=== PATIENT | male | born 1975 | race Caucasian/White ===

== ENCOUNTER 2022-11-28 05:40 | Outpatient (CLI) | payer BC, OTHER ==
[~2022-11-28] VITALS: Ht 172.7 cm; Wt 102.1 kg
[2022-11-29] MEDS ORDERED: SIMV20TA26 PO (11:29)
[2022-11-29] MEDS ORDERED: OMEP10CA5 PO (11:29)
[2022-11-29] MEDS ORDERED: CETI10TA17 PO (11:29)
== END 2022-11-29 11:35 | disposition home or self-care (01) ==
LOC: PREOP 05:40
PROVIDERS: ATTEND Surgery
DX: Z01.818 Encounter for other preprocedural examination (principal)

== ENCOUNTER 2022-12-11 07:47 | Day surgery (SDC) | payer BC, OTHER ==
[~2022-12-11] VITALS: Ht 172.7 cm; Wt 102.1 kg
[2022-12-11] VITALS (7 sets, daily range): BP systolic 100–128; BP diastolic 62–84
[~2022-12-11 07:47] MED LIST: CETI10TA17 PO; OMEP10CA5 PO; SIMV20TA26 PO
[2022-12-11] MEDS ORDERED: LACTATED RINGERS 1,000 ML IV STA (07:52)
[2022-12-11] MEDS ORDERED: HURRICAINE EXT TUBE (BENZOCAINE) XX PRN (08:00)
[2022-12-11] MEDS ORDERED: PROPOFOL INJECTION 50 ML IV ONE (09:10)
[2022-12-11] MEDS ORDERED: MIDAZOLAM 2 MG/2 ML (VERSED) VIAL ONE (09:11)
--- NOTE | 2022-12-11 09:43 | Progress Note-Post Operative ---
Post-Operative Progess Note Surgeon (s)/Mobile Phone Salesperson (s) Surgeon BERKLEY GARCÍA DO Mobile Phone Salesperson: na Pre-Operative Diagnosis GERD, Screening Colonoscopy Post-Operative Diagnosis Hiatal Hernia, Transverse Colon Polyp Procedure & Operative Findings Date of Procedure 12/11/22 Procedure Performed/Findings EGD with biopsies, Colonoscopy with hot biopsy polypectomy x1 Anesthesia Type per SCORER HELPER Estimated Blood Loss Estimated blood loss (mL): none Specimens/Packing Specimens Removed antrum, GE Junction, Transverse Colon x1 BERKLEY GARCÍA DO December 11, 2022 09:43
--- NOTE | 2022-12-11 09:45 | Discharge Inst-Simple/Standard ---
Discharge Inst-Standard Patient Instructions/Follow Up Plan of Care/Instructions/FU: Follow up with [facility] in two weeks Activity as Tolerated: Yes Discharge Diet: Regular Diet BERKLEY GARCÍA DO December 11, 2022 09:45
--- NOTE | 2022-12-11 15:26 | OPERATIVE REPORT ---
DATE OF SERVICE: 12/11/2022 PREOPERATIVE DIAGNOSES: Gastroesophageal reflux disease, screening colonoscopy. POSTOPERATIVE DIAGNOSES: Hiatal hernia and transverse colon polyp. PROCEDURES: EGD with biopsies, colonoscopy with hot biopsy polypectomy x1. SURGEON: Berkley Farooq DO ANESTHESIA: Per [employer] OPERATOR. ESTIMATED BLOOD LOSS: None. COMPLICATIONS: None. SPECIMENS: Antrum GE junction and transverse colon polyp. INDICATIONS: The patient is a 47-year-old male with GERD symptoms and needing screening colonoscopy. He understands risks and benefits of procedures and wished to proceed. Consent was signed in chart. DESCRIPTION OF PROCEDURE: The patient was taken to endoscopy suite, placed in left lateral recumbent position. Timeout was performed. Scope was inserted in the mouth, down the esophagus, stomach and the duodenum without difficulty. No polyps, masses or ulcerations within the duodenum. Scope was retracted back into Stomach was further insufflated. No polyps, masses or ulcerations. Biopsy of the antrum was obtained. Scope was retroflexed noting a hiatal hernia, minimal to moderate. Scope was then returned to its normal position, slowly withdrawn until distal esophagus. No polyps, masses or ulcerations. Biopsy of GE junction was obtained. Scope was slowly retracted back until completely removed. The patient tolerated the procedure well without complications. Digital rectal exam was performed. No palpable polyps, masses or ulcerations. Scope was inserted in the rectum, advanced all the way to the cecum with minimal difficulty. Prep was adequate. Scope was slowly retracted back. No polyps, masses or ulcerations in the cecum. In the ascending colon, transverse colon, small polyp was present, which hot biopsy polypectomy was performed. Scope was then continuously retracted back. No polyps, masses or ulcerations in the remainder of the transverse, descending and sigmoid colon. Once in the rectum, scope was retroflexed noting no other pathology. Scope was returned to its normal position, slowly withdrawn until completely removed. The patient tolerated the procedure well without any complications, taken to recovery room in stable condition. RECOMMENDATIONS: The patient will follow up on biopsies in 2 weeks. I will continue on omeprazole as this keeps his symptoms under control. The patient with a colon polyp, would recommend repeat colonoscopy in 5 years. Any issues before that, be seen at that time. Job ID: [id number] DocumentID: [id number] Dictated Date: 12/11/2022 09:44:46 Mail Rider Date: 12/11/2022 15:24:00 Dictated By: BERKLEY FAROOQ DO
--- NOTE | 2022-12-11 15:38 | Anesthesia-General Post-Op ---
MAC Patient Condition Mental Status/LOC: Same as Preop Cardiovascular: Satisfactory Nausea/Vomiting: Absent Respiratory: Satisfactory Pain: Controlled Complications: Absent Post Op Complications Complications None Follow Up Care/Instructions Patient Instructions None needed. Anesthesiology Discharge Order Discharge Order Patient is doing well, no complaints, stable vital signs, no apparent adverse anesthesia problems. No complications reported per nursing. RONNIE MILLER CRNA December 11, 2022 15:38
== END 2022-12-11 10:35 | disposition home or self-care (01) ==
LOC: ENDO 07:47
PROVIDERS: ATTEND Surgery
DX: Z12.11 Encounter for screening for malignant neoplasm of colon (principal); K63.5 Polyp of colon; K44.9 Diaphragmatic hernia without obstruction or gangrene; K21.9 Gastro-esophageal reflux disease without esophagitis; E66.9 Obesity, unspecified; Z68.34 Body mass index [BMI] 34.0-34.9, adult